=== PATIENT | female | born 1975 | race Caucasian/White ===

== ENCOUNTER 2017-01-17 21:26 | Emergency (ER) | payer OTHER ==
[2017-01-17 21:42] VITALS: BMI 27.8
--- NOTE | 2017-01-17 22:06 | PDOC ---
History of Present Illness - General Chief Complaint: Headache Stated Complaint: HEADACHE Time Seen by Provider: 01/17/17 21:39 History Source: Patient Exam Limitations: No Limitations - History of Present Illness Initial Comments: 01/17/17 22:03 41-year-old female with a history of migraines, anemia, prediabetic, chronic neck and back injury/2002 presenting c/o a 4/10 non radiating,intermittent throbbing kan with photophobia and phonophobia, nausea but denies any vomiting, fever/chills, dizziness, lightheadedness, new onset neck/back pains, chest pain , shortness of breath, extremity numbness or tingling sensation. Patient states she was served divorce papers today which exacerbated her headaches. She states her soon to be ex- friend yelled at her this afternoon which cause the headache to intensify. No alleviating factors. Timing/Duration: reports: 4-6 hours Severity: Yes: mild Associated Symptoms: denies: fever/chills, nausea/vomiting Past History - Past Medical History Allergies/Adverse Reactions: Allergies Allergy/AdvReac Type Severity Reaction Status Date / Time Penicillins Allergy Vomiting Verified 01/17/17 23:42 Home Medications: Ambulatory Orders NK [No Known Home Medication] 01/17/17 Asthma: No Cancer: No Cardiac Disorders: No Diabetes: No HTN: No Psychiatric Problems: Yes Seizures: No Thyroid Disease: No - Surgical History Appendectomy: Yes - Psycho/Social/Smoking Cessation Hx Anxiety: No Suicidal Ideation: No Smoking Status: No Smoking History: Never smoked Have you smoked in the past 12 months: No Number of Cigarettes Smoked Daily: 0 Hx Alcohol Use: No Drug/Substance Use Hx: No Hx Substance Use Treatment: No Review of Systems - Review of Systems Able to Perform ROS?: Yes Comments:: 01/17/17 22:02 CONSTITUTIONAL: Absent: fever, chills, diaphoresis, generalized weakness, malaise, loss of appetite HEENT: Absent: rhinorrhea, nasal congestion, throat pain, throat swelling, difficulty swallowing, mouth swelling, ear pain, eye pain, visual Changes CARDIOVASCULAR: Absent: chest pain, loss of consciousness, palpitations, irregular heart rate, peripheral edema RESPIRATORY: Absent: cough, shortness of breath, dyspnea with exertion, orthopnea, wheezing, stridor, hemoptysis GASTROINTESTINAL: Absent: abdominal pain, abdominal distension, nausea, vomiting, diarrhea, constipation, melena, hematochezia GENITOURINARY: Absent: dysuria, frequency, urgency, hesitancy, hematuria, flank pain, genital pain MUSCULOSKELETAL: Absent: myalgia, arthralgia, joint swelling SKIN: Absent: rash, itching, pallor HEMATOLOGIC/IMMUNOLOGIC: Absent: easy bleeding, easy bruising, lymphadenopathy, frequent infections ENDOCRINE: Absent: unexplained weight gain, unexplained weight loss, heat intolerance, cold intolerance NEUROLOGIC: +frontal headache Absent: focal weakness or paresthesias, dizziness, unsteady gait, seizure, mental status changes, bladder or bowel incontinence PSYCHIATRIC: Absent: anxiety, depression, suicidal or homicidal ideation, hallucinations. Is the patient limited E[place]an proficient: No *Physical Exam - Vital Signs Last Vital Signs Temp Pulse Resp BP Pulse Ox 98.3 F 106 H 18 122/77 99 01/17/17 21:27 01/17/17 21:27 01/17/17 21:27 01/17/17 21:27 01/17/17 21:27 - Physical Exam Comments: 01/17/17 22:02 GENERAL: Well developed, well nourished. Awake and alert. No acute distress. HEENT: Normocephalic, atraumatic. PERRLA, EOMI. No conjunctival pallor. Sclera are non- icteric. Moist mucous membranes. Oropharynx is clear. NECK: Supple. Full ROM. No JVD. Carotid pulses 2+ and symmetric, without bruits. No thyromegaly. No lymphadenopathy. CARDIOVASCULAR: Regular rate and rhythm. No murmurs, rubs, or gallops. Distal pulses are 2+ and symmetric. PULMONARY: No evidence of respiratory distress. Lungs clear to auscultation bilaterally. No wheezing, rales or rhonchi. ABDOMINAL: Soft. Non-tender. Non-distended. No rebound or guarding. No organomegaly. Normoactive bowel sounds. MUSCULOSKELETAL Normal range of motion at all joints. No bony deformities or tenderness. No CVA tenderness. EXTREMITIES: No cyanosis. No clubbing. No edema. No calf tenderness. SKIN: Warm and dry. Normal capillary refill. No rashes. No jaundice. NEUROLOGICAL: Alert, awake, appropriate. Cranial nerves 2-12 intact. No deficits to light touch and temperature in face, upper extremities and lower extremities. No motor deficits in the in face, upper extremities and lower extremities. Normoreflexic in the upper and lower extremities. Normal speech. Toes are down- going bilaterally. Gait is normal without ataxia. PSYCHIATRIC: Cooperative. Good eye contact. Appropriate mood and affect. Progress Note - Progress Note Progress Note: Pt had a dystonic reaction to Reglan IV push. Patient was given Benadryl IV 2305hrs: Pt feels better/Wishes to be d/c *DC/Admit/Observation/Transfer Diagnosis at time of Disposition: Anxiety Migraine headache Qualifiers: Migraine type: without aura Status migrainosus presence: without status migrainosus Intractability: not intractable Qualified Code(s): G43.009 - Migraine without aura, not intractable, without status migrainosus - Discharge Dispostion Condition at time of disposition: Improved Admit: No - Referrals Referrals: Violet Ceballos [Primary Care Provider] - Camacho Santos MD [Staff Physician] - - Patient Instructions Printed Discharge Instructions: DI for Migraine, DI for Anxiety -- Adult Additional Instructions: Rest Increase fluid Tylenol/Motrin as needed for pain Follow up with Dr. Santos/neurologist for your migraine headaches Return to the ER for severe/persistent/worsening symptoms
[2017-01-17] MEDS ORDERED: METOCLOPRAMIDE HCL INJECTION 10 MG/2 ML VIAL IVPUSH ONE (22:07)
[2017-01-17] MEDS ORDERED: SODIUM CHLORIDE 1,000 ML IV STA (22:07)
[2017-01-17] MEDS ORDERED: METOCLOPRAMIDE HCL INJECTION 10 MG/2 ML VIAL ONE (22:37)
[2017-01-18 01:25] VITALS: BP 120/75; PULSE 92; TEMP 98
== END 2017-01-18 00:45 | disposition home or self-care (01) ==
LOC: JER 21:26
PROC: 3E033GC Introduction of Other Therapeutic Substance into Peripheral Vein, Percutaneous Approach (ICD-10-PCS; principal; 2017-01-17)
PROC: 3E0337Z Introduction of Electrolytic and Water Balance Substance into Peripheral Vein, Percutaneous Approach (ICD-10-PCS; 2017-01-17)
DX: F41.9 Anxiety disorder, unspecified (principal); G43.009 Migraine without aura, not intractable, without status migrainosus
CPT/HCPCS: 96361; 96374; 96375; 99282-25

== ENCOUNTER 2018-04-20 22:02 | Emergency (ER) | payer OTHER ==
[2018-04-20 22:21] VITALS: BP 139/86; PULSE 84; TEMP 98.8; BMI 28.3
--- NOTE | 2018-04-20 22:23 | PDOC ---
History of Present Illness - General Chief Complaint: Shortness of Breath Stated Complaint: DIFF. BREATHING,PAIN Time Seen by Provider: 04/20/18 22:23 History Source: Patient - History of Present Illness Initial Comments: 04/20/18 23:26 42 year old female c/o headache, throat pain Past History - Past Medical History Allergies/Adverse Reactions: Allergies Allergy/AdvReac Type Severity Reaction Status Date / Time Penicillins Allergy Vomiting Verified 04/20/18 22:17 Home Medications: Ambulatory Orders Albuterol Sulfate Inhaler - [Ventolin HFA Inhaler -] 1 - 2 inh PO Q4H PRN #1 inhaler 04/20/18 Amoxicillin - [Amoxicillin 875mg Tablet -] 875 mg PO BID #20 tablet 04/20/18 Asthma: No Cancer: No Cardiac Disorders: No Diabetes: No HTN: No Psychiatric Problems: Yes Seizures: No Thyroid Disease: No - Surgical History Appendectomy: Yes - Suicide/Smoking/Psychosocial Hx Smoking Status: No Smoking History: Never smoked Have you smoked in the past 12 months: No Number of Cigarettes Smoked Daily: 0 Information on smoking cessation initiated: No Hx Alcohol Use: No Drug/Substance Use Hx: No Hx Substance Use Treatment: No *Physical Exam - Vital Signs Last Vital Signs Temp Pulse Resp BP Pulse Ox 98.8 F 84 16 139/86 100 04/20/18 22:13 04/20/18 22:13 04/20/18 22:13 04/20/18 22:13 04/20/18 22:13 *DC/Admit/Observation/Transfer Diagnosis at time of Disposition: Strep pharyngitis Left knee pain Qualifiers: Chronicity: acute Qualified Code(s): M25.562 - Pain in left knee - Discharge Dispostion Disposition: HOME - Prescriptions Prescriptions: Albuterol Sulfate Inhaler - [Ventolin HFA Inhaler -] 1 - 2 inh PO Q4H PRN #1 inhaler PRN Reason: Wheezing Amoxicillin - [Amoxicillin 875mg Tablet -] 875 mg PO BID #20 tablet - Referrals Referrals: Juwan Ceballos MD [Primary Care Provider] - Call tomorrow - Patient Instructions Printed Discharge Instructions: DI for Strep Throat Additional Instructions: please follow up with your PT for your knee pain. you may take ibuprofen every 6 hours as needed for pain take amoxicillin as prescribed. do not share your cups, utensil, strict hand washing. follow up with your doctor as soon as possible. - Post Discharge Activity Forms/Work/School Notes: Back to Work
[2018-04-20] MEDS ORDERED: ALBUTEROL SO4 2.5/IPRATROPIUM 0.5 INH SOL 3 ML VIAL.NEB. NEB ONE ×2 (22:37→22:50)
--- NOTE | 2018-04-21 11:49 | EKG ---
Test Reason : Blood Pressure : / mmHG Vent. Rate : 071 BPM Atrial Rate : 071 BPM P-R Int : 176 ms QRS Dur : 072 ms QT Int : 404 ms P-R-T Axes : 051 040 046 degrees QTc Int : 439 ms NORMAL SINUS RHYTHM NORMAL ECG WHEN COMPARED WITH ECG OF 24-MAY-2013 16:55, NO SIGNIFICANT CHANGE WAS FOUND Confirmed by KESHAWN WU MD ([id number]) on 04/21/2018 11:49:52 AM Referred By: Confirmed By:KESHAWN WU MD
== END 2018-04-21 00:05 | disposition home or self-care (01) ==
LOC: JER 22:02
DX: J02.0 Streptococcal pharyngitis (principal); B95.0 Streptococcus, group A, as the cause of diseases classified elsewhere
CPT/HCPCS: 87070; 87430; 93005; 93010; 99282-25; J7620

== ENCOUNTER 2018-05-12 22:25 | Emergency (ER) | payer OTHER ==
[2018-05-12 22:29] VITALS: BP 128/74; PULSE 96; BMI 31.2
--- NOTE | 2018-05-13 00:29 | PDOC ---
History of Present Illness - General Chief Complaint: Chest Pain Stated Complaint: CHEST PAIN Time Seen by Provider: 05/13/18 00:07 - History of Present Illness Initial Comments: 05/13/18 00:31 43-year-old female with no significant past medical history presents to the emergency Department with 2 weeks of nonproductive cough, diffuse chest pain, and sore throat. PT reports CP is diffuse and worse with coughing. SHe has seen her PMD and a railroad signal technician for the chest pain. Today, she called her railroad signal technician to find out the results of an outpt echo and was told to come to the ED when she reported that she still had CP. Denies SOB. CP is not worse with exertion, not pleuritic. SHe denies associated numbness/tingling, rashes. She also reports recurrent sore throat after she was treated for strep 2 weeks ago. Denies fevers or chills. Dneies abd pain, N/V/D, LE edema, dysuria, frequency. Denies headache, recent travel. Has been using an albuterol pump she was prescribed with some relief of coughing. Has no hx asthma. Past History - Past Medical History Allergies/Adverse Reactions: Allergies Allergy/AdvReac Type Severity Reaction Status Date / Time Penicillins Allergy Vomiting Verified 05/12/18 22:28 Home Medications: Ambulatory Orders Albuterol Sulfate Inhaler - [Ventolin HFA Inhaler -] 1 - 2 inh PO Q4H PRN #1 inhaler 04/20/18 Amoxicillin - [Amoxicillin 875mg Tablet -] 875 mg PO BID #20 tablet 04/20/18 Asthma: No Cancer: No Cardiac Disorders: No COPD: No Diabetes: No HTN: No Psychiatric Problems: Yes Seizures: No Thyroid Disease: No - Surgical History Appendectomy: Yes - Suicide/Smoking/Psychosocial Hx Smoking Status: No Smoking History: Never smoked Have you smoked in the past 12 months: No Number of Cigarettes Smoked Daily: 0 Hx Alcohol Use: No Drug/Substance Use Hx: No Substance Use Type: None Hx Substance Use Treatment: No Review of Systems - Review of Systems Comments:: 05/13/18 00:36 GENERAL/CONSTITUTIONAL: No fever or chills. No weakness. HEAD, EYES, EARS, NOSE AND THROAT: No change in vision. No ear pain or discharge. +sore throat. GASTROINTESTINAL: No nausea, vomiting, diarrhea or constipation. GENITOURINARY: No dysuria, frequency, or change in urination. CARDIOVASCULAR: No chest pain or shortness of breath. RESPIRATORY: No cough, wheezing, or hemoptysis. MUSCULOSKELETAL: No joint or muscle swelling or pain. No neck or back pain. SKIN: No rash NEUROLOGIC: No headache, vertigo, loss of consciousness, or change in strength/ sensation. ENDOCRINE: No increased thirst. No abnormal weight change. HEMATOLOGIC/LYMPHATIC: No anemia, easy bleeding, or history of blood clots. ALLERGIC/IMMUNOLOGIC: No hives or skin allergy. *Physical Exam - Vital Signs Last Vital Signs Temp Pulse Resp BP Pulse Ox 97.6 F 96 H 20 128/74 100 05/12/18 22:26 05/12/18 22:26 05/12/18 22:26 05/12/18 22:26 05/12/18 22:26 - Physical Exam Comments: 05/13/18 00:36 GENERAL: Awake, alert, and fully oriented, in no acute distress HEAD: No signs of trauma EYES: PERRLA, EOMI, sclera anicteric, conjunctiva clear ENT: Auricles normal inspection, nares patent, oropharynx clear without exudates. Mild post OP erythema with some evidence of post nasal drip. Moist mucosa NECK: Normal ROM, supple, no lymphadenopathy, JVD, or masses LUNGS: Breath sounds equal, clear to auscultation bilaterally. No wheezes, and no crackles HEART: Regular rate and rhythm, normal S1 and S2, no murmurs, rubs or gallops ABDOMEN: Soft, nontender, normoactive bowel sounds. No guarding, no rebound. No masses EXTREMITIES: Normal range of motion, no edema. No clubbing or cyanosis. No cords, erythema, or tenderness NEUROLOGICAL: Normal speech, cranial nerves intact, 5/5 strength in all 4 extremities, normal sensation to light touch in all 4 extremities, normal gait, normal tone SKIN: Warm, Dry, normal turgor, no rashes or lesions noted. Heart Score/ECG Review #1 05/13/18 00:37 Twelve-lead EKG was performed and reviewed by me. Normal sinus rhythm, rate 90. Normal axis and intervals. No ST elevations or T-wave inversions. ED Treatment Course - LABORATORY CBC & Chemistry Diagram: 05/13/18 03:06 05/13/18 03:06 Medical Decision Making - Medical Decision Making 05/13/18 00:38 43yo F presents to the ED with 2 weeks of CP, especially with coughing as well as sore throat. Vitals unremarkable. Exam with mild OP erythema. Likely viral syndrome with bronchitis. CP likely 2/2 coughing but will check trop, XR. EKG non ischemic. In absence of fever, exudates and with cough, unlikely to be strep throat 05/13/18 06:34 Pt states she feels much better Labs unremarkable CXR clear on my read Likely bronchitis pt asks if she can use albuterol inhaler more than twice a day as it helps her cough, informed her she can use it every 4 hours. Pt requests DC home I discussed the physical exam findings, ancillary test results and final diagnoses with the patient. I answered all of the patient's questions. The patient was satisfied with the care received and felt comfortable with the discharge plan and treatment plan. The patient will call their primary care physician within 24 hours to arrange follow-up and will return to the Emergency Department with any new, persistent or worsening symptoms. *DC/Admit/Observation/Transfer Diagnosis at time of Disposition: Cough, Chest pain, Sore throat - Discharge Dispostion Disposition: HOME Condition at time of disposition: Stable Decision to Admit order: No - Referrals Referrals: Demarcus Lowe MD [Primary Care Provider] - - Patient Instructions Printed Discharge Instructions: DI for Cough -- Adult Additional Instructions: Follow-up with your primary care doctor within 1 week. Return to the emergency department if you have any new, worsening or concerning symptoms. - Post Discharge Activity - Attestations Physician Attestion: 05/13/18 06:37 I, Dr. Marina Garnica MD, attest that this document has been prepared under my direction and personally reviewed by me in its entirety. I further attest, that it accurately reflects all work, treatment, procedures and medical decision -making performed by me.
[2018-05-13] MEDS ORDERED: SODIUM CHLORIDE 1,000 ML IV STA (00:39)
[2018-05-13] MEDS ORDERED: SODIUM CHLORIDE FOR INHALATION 3 ML VIAL.NEB IH ONE (00:40)
[2018-05-13 03:27] LABS: BASO % 0.9 % (0-2.0); HEMATOCRIT 37.7 % (32.4-45.2); HEMOGLOBIN 12.4 GM/dL (10.7-15.3); LYMPH % 39.6 % (8-40); MCHC 32.8 g/dl (32.0-36.0); MEAN CELL VOLUME 82.4 fl (80-96); MEAN PLT VOLUME 10.7 fl (7.5-11.1); NEUT % 48.5 % (42.8-82.8); PLATELET COUNT 183 K/MM3 (134-434); RBC 4.58 M/mm3 (3.60-5.2); RDW 13.8 % (11.6-15.6); WHITE BLOOD COUNT 5.2 K/mm3 (4.0-10.0)
[2018-05-13 04:09] LABS: ALBUMIN 3.6 g/dl (3.4-5.0); ALK PHOS 82 U/L (45-117); ANION GAP 6 MMOL/L (8-16); BILIRUBIN,TOTAL 0.2 mg/dL (0.2-1); BLOOD UREA NITROGEN 18 mg/dL (7-18); CALCIUM 8.7 mg/dL (8.5-10.1); CHLORIDE 104 mmol/L (98-107); CO2 29 mmol/L (21-32); CREATININE 0.7 mg/dL (0.55-1.3); GLUCOSE,RANDOM 110 mg/dL (74-106); POTASSIUM 4.1 mmol/L (3.5-5.1); SGOT/AST 33 U/L (15-37); SGPT/ALT 32 U/L (13-61); SODIUM 140 mmol/L (136-145); TOT PROT 7.3 g/dl (6.4-8.2)
[2018-05-13] MEDS ORDERED: ACETAMINOPHEN 1000 MG/100 ML VIAL (NON FORMULARY) IVPB ONE (04:37)
[2018-05-13] MEDS ORDERED: ACETAMINOPHEN INJECTION 100 ML IVPB ONE (05:29)
[2018-05-13 05:47] VITALS: TEMP 98.2
--- NOTE | 2018-05-13 21:59 | EKG ---
Test Reason : Blood Pressure : / mmHG Vent. Rate : 089 BPM Atrial Rate : 089 BPM P-R Int : 162 ms QRS Dur : 076 ms QT Int : 384 ms P-R-T Axes : 055 039 037 degrees QTc Int : 467 ms NORMAL SINUS RHYTHM WITH SINUS ARRHYTHMIA POSSIBLE LEFT ATRIAL ENLARGEMENT BORDERLINE ECG WHEN COMPARED WITH ECG OF 20-APR-2018 22:42, NO SIGNIFICANT CHANGE WAS FOUND Confirmed by RYANNE GARCIA MD ([id number]) on 05/13/2018 9:59:17 PM Referred By: Confirmed By:RYANEN GARCIA MD
== END 2018-05-13 06:50 | disposition home or self-care (01) ==
LOC: JER 22:25
PROC: 3E0F7GC Introduction of Other Therapeutic Substance into Respiratory Tract, Via Natural or Artificial Opening (ICD-10-PCS; principal; 2018-05-12)
PROC: 3E0337Z Introduction of Electrolytic and Water Balance Substance into Peripheral Vein, Percutaneous Approach (ICD-10-PCS; 2018-05-12)
PROC: 3E033NZ Introduction of Analgesics, Hypnotics, Sedatives into Peripheral Vein, Percutaneous Approach (ICD-10-PCS; 2018-05-12)
DX: J40 Bronchitis, not specified as acute or chronic (principal)
CPT/HCPCS: 36415; 71045-TC-FY; 80053; 84484; 84703; 85025; 87070; 87430; 93005; 93010; 99284-25; J0131; J7030